=== PATIENT | female | born 1950 | race Caucasian/White ===

== ENCOUNTER → 2016-07-11 | Outpatient (CLI) | payer MEDICAID ==
[~2016-07-11] MED LIST: ATIVAN0.5 MG PO; BIAXIN500 MG PO; CLARITIN10 MG PO; LISINOPRIL AND1 TAB PO; LISINOPRIL/HCTZ1 TA2 PO; MIRAPEX0.5 MG PO; OMEPRAZOLE MAGN20 MG PO; OMEPRAZOLE20 MG PO; PRAVACHOL40 MG PO; PRAVASTATIN SOD80 MG PO; PREDNICOT20 MG PO; PRILOSEC40 MG PO; PROZAC20 MG PO; TESSALON PERLE200 MG PO; TRAMADOL50 MG PO; ULTRAM50 MG PO; VOLTAREN75 MG PO; WELLBUTRIN XL150 MG PO; ZITHROMAX Z PA250 MG PO; ZOFRAN4 MG PO
== END | disposition home or self-care (01) ==
LOC: RAD 12:08
DX: M51.36 Other intervertebral disc degeneration, lumbar region (principal); M41.86 Other forms of scoliosis, lumbar region; M48.06 Spinal stenosis, lumbar region; M25.552 Pain in left hip; M25.551 Pain in right hip

== ENCOUNTER → 2016-08-21 | Outpatient (CLI) | payer MEDICAID ==
--- NOTE | ~2016-08-21 | PF ---
[place], [place] PULMONARY FUNCTION TEST [facility] [id number] UNIT #: [id number] ROOM: DOCTOR: RICARDO DALTON MD,ERIKA BIRTHDATE: [birth year] DOS: 08/21/2016 The test was ordered by Liz Weldon, the nurse practitioner. HISTORY: The patient noted as 66-year-old female, height of 71 inches, weight of 297 pounds. BMI was noted at 41.4. The testing was done for assessment of symptoms of shortness breath and wheezing as well as a nonproductive cough. The patient was noted with known tobacco use in the past. SPIROMETRY: The FVC was recorded 3.87 liters, 95% predicted value that was normal. The FEV1 was noted at 3 liters as 96% predicted value normal as well. Ratio of FEV1/FVC was noted as normal. No changes occurred postbronchodilator test. Flow volume loop for the patient was noted as possibility of mild obstructive airway pattern. The patient's lung volumes, thoracic gas volume recorded as 92%, residual volume 121%, total lung capacity 110%. The lung volumes were noted normal. The patient's lung diffusion noted normal at 87%. The patient's airway resistance and passive conductance were noted significantly abnormal. Partial improvement occurred postbronchodilator test. FINAL IMPRESSION: The test was consistent with possibility of reversible obstructive lung disease for this patient such as bronchial asthma. Clinical correlation would be advised. ERIKA SILVA MD CM:PFREPORT:PULMONARY FUNCTION TEST [id number] ERIKA DALTON MD
== END ==
LOC: CP 10:22
DX: R06.02 Shortness of breath (principal); R06.2 Wheezing

== ENCOUNTER → 2017-01-05 | Day surgery (SDC) | payer MEDICAID ==
[~2017-01-05] VITALS: Ht 180.3 cm; Wt 132.0 kg
[~2017-01-05] MED LIST changes: +TYLENOL325 M2 PO; +VITAMIN D-32000 UNIT PO
--- NOTE | ~2017-01-05 | O ---
[place], [place] OPERATIVE NOTE NAME: GAURI HOLBROOK [facility] #: [id number] UNIT #: [id number] ROOM: DOCTOR: ALLEN JARA MDERIEESSENCE BIRTHDATE: [birth year] DOS: INDICATIONS: A 66-year-old patient who has presented with chief complaint of epigastric abdominal pain, dyspepsia, despite omeprazole 40 mg daily. ALLERGIES: PENICILLIN. FAMILY HISTORY: Noncontributory. PAST SURGICAL HISTORY: Tonsillectomy, adenoidectomy, hysterectomy. PAST MEDICAL HISTORY: Hypercholesterolemia, hypertension and restless leg and obesity, anxiety. SOCIAL HISTORY: Nonsmoker, nonalcohol consumer. PROCEDURE: Todays' procedure part of investigation is panendoscopy plus biopsy. PREMEDICATION: Versed and Diprivan. SCOPE: Olympus forward*viewing gastroscope Q10 video. REPORT: After putting the patient in the left lateral position and after application of lubricant to the scope, the scope was introduced. Thereafter, under direct visualization, I advanced through the length of the esophagus without difficulty. Entering into gastric pouch, she has a moderate size hiatal hernia sac. Scope was maneuvered through this ____ twisted hiatal hernia into the gastric pouch along the greater curvature. The scope was advanced towards the pyloric ring. Duodenal bulb, second and third part within normal limits. Scope was gradually withdrawn along the lesser curvature. Antral biopsy obtained. GI reflection of the scope confirmed hiatal hernia. The patient extubated, tolerated procedure well. IMPRESSION: Hiatal hernia, moderate size, gastritis, status post biopsy. PLAN AND DISCUSSION: We are going to give 40 mg, Protonix daily continues, Gaviscon Extra Strength to be taken 1 tablet at bedtime, 1 tablet a.m. and p.r.n. when she requires, otherwise the culprit in her epigastric distress and dyspepsia is secondary to her hiatal hernia. Antireflux measures, smaller meals, avoiding late eating, all would help the situation. The patient was advised to abstain from certain foods including chocolate, alcohols, carbonated sodas, excessive tomato sauce and mustard and mint and follow up routinely with you in office and with us in GI clinic. I thank you very much indeed again Ms. Liz Weldon for your kind referral. [place], [place] OPERATIVE NOTE NAME: GAURI HOLBROOK UNIT #: [id number] ROOM: DOCTOR: MAREK BRONSON,LAMONT BIRTHDATE: [birth year] LAMONT JARA MD CM:OPRECORD:OPERATIVE NOTE 02 LIZ JARA MD 01/05/172101 interface
[2017-01-05 13:41] VITALS: BP 165/71
[2017-01-05 14:28] VITALS: BP 122/73
[2017-01-05 14:45] VITALS: BP 126/72
[2017-01-05 14:54] VITALS: BP 160/74
== END | disposition home or self-care (01) ==
LOC: SDC 01-03 10:15
DX: K29.50 Unspecified chronic gastritis without bleeding (principal); K44.9 Diaphragmatic hernia without obstruction or gangrene; F41.9 Anxiety disorder, unspecified; F32.9 Major depressive disorder, single episode, unspecified; K21.9 Gastro-esophageal reflux disease without esophagitis; M19.90 Unspecified osteoarthritis, unspecified site; I10 Essential (primary) hypertension; E78.00 Pure hypercholesterolemia, unspecified; J45.909 Unspecified asthma, uncomplicated; Z90.710 Acquired absence of both cervix and uterus; Z98.890 Other specified postprocedural states; Z83.3 Family history of diabetes mellitus; Z82.49 Family history of ischemic heart disease and other diseases of the circulatory system; Z88.0 Allergy status to penicillin

== ENCOUNTER → 2018-01-15 | Outpatient (CLI) | payer MEDICAID | END | disposition home or self-care (01) | LOC: MAMMO 13:46 | DX: Z12.31 Encounter for screening mammogram for malignant neoplasm of breast (principal); K44.9 Diaphragmatic hernia without obstruction or gangrene; M51.34 Other intervertebral disc degeneration, thoracic region; M41.83 Other forms of scoliosis, cervicothoracic region; M50.30 Other cervical disc degeneration, unspecified cervical region ==

== ENCOUNTER → 2018-02-13 | Day surgery (SDC) | payer MEDICAID ==
[~2018-02-13] VITALS: Ht 180.3 cm; Wt 135.2 kg
--- NOTE | ~2018-02-13 | O ---
[place], [place] OPERATIVE NOTE [id number] UNIT #: [id number] ROOM: DOCTOR: LAMONT JARA MD BIRTHDATE: [birth year] DOS: 02/13/2018 HISTORY OF PRESENT ILLNESS: This is a 68-year-old patient who was presented with chief complaint of colonic screening concern. ALLERGIES: PENICILLIN. FAMILY HISTORY: Noncontributory. PAST SURGICAL HISTORY: Hysterectomy, tonsillectomy, ovarian cystectomy, and bilateral knee prosthesis. PAST MEDICAL HISTORY: Obesity, hypertension, hypercholesterolemia, and depression. SOCIAL HISTORY: Nonsmoker, nonalcohol consumer. PROCEDURE: Today's procedure part of investigation is colonoscopy plus snare polypectomy. PREMEDICATION: Propofol. SCOPE: Olympus forward-viewing colonoscope 10L video. REPORT: After putting the patient in left lateral position and application of lubricant to the scope, the scope was introduced. Thereafter, under direct visualization, advanced through the length of colon without difficulty. Diverticulosis of sigmoid colon was appreciated. Sessile polypoid lesion in mid transverse colon with snare was polypectomized. Samples removed. Base of the cecum explored, appendiceal orifice identified, ileocecal valve was defined and photographed. Air was suctioned out. The patient was extubated, tolerated the procedure well. IMPRESSION: Colonic polyps, status post snare polypectomy transverse colon, diverticulosis sigmoid colon. PLAN AND DISCUSSION: High fiber diet, avoiding fatty food and excessive carbohydrates. Follow up as outpatient routinely with you in office, p.r.n. visit with us in GI Clinic. [place], [place] OPERATIVE NOTE NAME: GAURI HOLBROOK UNIT #: [id number] ROOM: DOCTOR: LAMONT JARA MD BIRTHDATE: [birth year] LAMONT JARA MD CM:OPRECORD:OPERATIVE NOTE 1046 1221 JULIAN JARA MD 02/13/18 1221 interface
[2018-02-13 09:20] VITALS: BP 135/87
[2018-02-13 10:40] VITALS: BP 126/69
[2018-02-13 10:55] VITALS: BP 120/61
[2018-02-13 11:10] VITALS: BP 120/65
== END | disposition home or self-care (01) ==
LOC: SDC 02-08 10:15
DX: Z12.11 Encounter for screening for malignant neoplasm of colon (principal); D12.3 Benign neoplasm of transverse colon; K57.30 Diverticulosis of large intestine without perforation or abscess without bleeding; I10 Essential (primary) hypertension; E78.00 Pure hypercholesterolemia, unspecified; K21.9 Gastro-esophageal reflux disease without esophagitis; J45.909 Unspecified asthma, uncomplicated; M19.90 Unspecified osteoarthritis, unspecified site; E66.09 Other obesity due to excess calories; F32.9 Major depressive disorder, single episode, unspecified; F41.9 Anxiety disorder, unspecified; Z87.19 Personal history of other diseases of the digestive system; Z90.710 Acquired absence of both cervix and uterus; Z96.653 Presence of artificial knee joint, bilateral; Z98.890 Other specified postprocedural states; Z79.899 Other long term (current) drug therapy; Z88.0 Allergy status to penicillin; Z68.41 Body mass index [BMI] 40.0-44.9, adult; Z82.49 Family history of ischemic heart disease and other diseases of the circulatory system; Z83.3 Family history of diabetes mellitus; Z86.73 Personal history of transient ischemic attack (TIA), and cerebral infarction without residual deficits

== ENCOUNTER → 2018-06-20 | Outpatient (CLI) | payer MEDICAID ==
--- NOTE | ~2018-06-20 | EKG ---
[place], [place] ELECTROCARDIOGRAM REPORT NAME: GAURI HOLBROOK UNIT #: [id number] ROOM: DOCTOR: EPIPHANY DRAFT REPORT BIRTHDATE: [birth year] [facility] Test Date: 2018-06-20 Test Time: 14:02:56 Pat Name: GAURI HOLBROOK Department: Room: Gender: F Explosive Expert: Aggie Weber : 1950 Requested By: JULIAN LARRY Order Number: [id number] Reading MD: Meng Rodriguez MD Measurements Intervals [place] Rate: 69 P: 8 SD: 204 QRS: -17 QRSD: 98 T: 15 QT: 419 QTc: 449 Interpretive Statements Sinus rhythm Left ventricular hypertrophy Anterior Q waves, possibly due to LVH Electronically Signed On 06-21-2018 3:18:29 PDT by Meng Rodriguez MD CM:EKGRPT:ELECTROCARDIOGRAM REPORT 1402 [id number] JULIAN LARRY EPIPHANY DRAFT REPORT JULIAN LARRY
== END | disposition home or self-care (01) ==
LOC: CARD 12:24
DX: F32.9 Major depressive disorder, single episode, unspecified (principal); E03.9 Hypothyroidism, unspecified; R06.02 Shortness of breath; I10 Essential (primary) hypertension; Z86.39 Personal history of other endocrine, nutritional and metabolic disease

== ENCOUNTER → 2019-02-25 | Outpatient (CLI) | payer MEDICAID | END | disposition home or self-care (01) | LOC: CARD 08:41 | DX: K44.9 Diaphragmatic hernia without obstruction or gangrene (principal); E03.9 Hypothyroidism, unspecified; I10 Essential (primary) hypertension; F32.9 Major depressive disorder, single episode, unspecified; F43.21 Adjustment disorder with depressed mood; R42 Dizziness and giddiness ==

== ENCOUNTER → 2019-04-22 | Outpatient (CLI) | payer MEDICAID ==
[~2019-04-22] MED LIST changes: +ASPIRIN81 M1 PO; +HYDROCHLOROTH12.5 M2 PO
--- NOTE | 2019-04-22 07:00 | NUR ---
INFORMED CONSENT OBTAINED FOR LEXISCAN NUCLEAR STRESS TEST WITH DR. WALLACE. RESTING EKG NSR WITH A RESTING HR OF 74 WITH BP OF 148/100. LUNGS CLEAR WITH SPO2 OF 96% ON ROOM AIR. PT COMPLETED A 1:00 LEXISCAN PROTOCOL RECEIVING LEXISCAN 0.4 MG IV OVER 10 SECONDS. HAD NO EKG CHANGES. DID C/O CHEST DISCOMFORT THAT WAS RELIEVED IN RECOVERY. HAD A PEAK HR OF 96 WITH BP OF 136/78. LAST RECOVERY HR OF 92 WITH BP OF 132/76. AWAITING SCANNING IN STABLE CONDITION.
== END | disposition home or self-care (01) ==
LOC: CARD 00:43
DX: R07.9 Chest pain, unspecified (principal)

== ENCOUNTER → 2019-11-04 | Outpatient (CLI) | payer MEDICAID | END | disposition home or self-care (01) | LOC: COVID19 00:52 | DX: R05 Cough (principal); R06.02 Shortness of breath; E66.01 Morbid (severe) obesity due to excess calories; F31.4 Bipolar disorder, current episode depressed, severe, without psychotic features; Z20.818 Contact with and (suspected) exposure to other bacterial communicable diseases; Z68.43 Body mass index [BMI] 50.0-59.9, adult ==

== ENCOUNTER → 2019-12-05 | Outpatient (CLI) | payer MEDICAID ==
[~2019-12-05] MED LIST changes: +CARAFATE1 G1 PO; +VRAYLAR1 EACH PO
== END | disposition home or self-care (01) ==
LOC: COVID19 00:46
PROVIDERS: ATTEND Surgery
DX: Z01.812 Encounter for preprocedural laboratory examination (principal); Z20.828 Contact with and (suspected) exposure to other viral communicable diseases

== ENCOUNTER → 2019-12-11 | Day surgery (SDC) | payer MEDICAID ==
[~2019-12-11] VITALS: Ht 180.3 cm; Wt 147.0 kg
[2019-12-11 11:02] VITALS: BP 139/72
[2019-12-11 11:58] VITALS: BP 101/55
[2019-12-11 12:13] VITALS: BP 107/53
[2019-12-11 12:28] VITALS: BP 130/56
== END | disposition home or self-care (01) ==
LOC: SDC 12-08 13:15
PROVIDERS: ATTEND Surgery
DX: K29.50 Unspecified chronic gastritis without bleeding (principal); K44.9 Diaphragmatic hernia without obstruction or gangrene; I10 Essential (primary) hypertension; J45.909 Unspecified asthma, uncomplicated; F41.9 Anxiety disorder, unspecified; F32.9 Major depressive disorder, single episode, unspecified; E78.5 Hyperlipidemia, unspecified; E78.00 Pure hypercholesterolemia, unspecified; K21.9 Gastro-esophageal reflux disease without esophagitis; Z96.653 Presence of artificial knee joint, bilateral; Z98.890 Other specified postprocedural states; Z79.899 Other long term (current) drug therapy; Z88.0 Allergy status to penicillin; Z88.8 Allergy status to other drugs, medicaments and biological substances; Z83.3 Family history of diabetes mellitus; Z82.3 Family history of stroke; Z82.49 Family history of ischemic heart disease and other diseases of the circulatory system

== ENCOUNTER → 2020-06-08 | Outpatient (CLI) | payer MEDICARE, MEDICAID | END | disposition home or self-care (01) | LOC: RAD 12:16 | PROVIDERS: ATTEND Nurse Practitioner Family | DX: M25.521 Pain in right elbow (principal); M25.511 Pain in right shoulder; M25.531 Pain in right wrist; Z91.81 History of falling ==

== ENCOUNTER 2020-08-31 14:57 | Emergency (ER) | payer OTHER ==
[~2020-08-31] VITALS: Wt 146.5 kg
[2020-08-31 15:03] VITALS: BP 145/76
[2020-08-31 15:51] LABS: BILIRUBIN Negative (Negative); BLOOD Trace-Lysed (Negative); CLARITY Cloudy (Clear); COLOR Yellow (Yellow); GLUCOSE Negative (Negative); KETONE Negative (Negative); LEUKO ESTERASE 3+ (Negative); NITRITE Negative (Negative); PH 5.5 (4.5-8.0); SPECIFIC GRAVITY 1.015 (1.001-1.030)
[2020-08-31 16:01] LABS: EPITHELIAL CELLS 16-20; HYALINE CAST 0-2; MUCOUS 1+; WBC 51-100 wbc/hpf (0-5)
[2020-08-31] MEDS ORDERED: SEPTDS PO (16:24)
== END 2020-08-31 16:31 | disposition home or self-care (01) ==
LOC: ED 14:57
PROVIDERS: Physician Assistant
DX: N39.0 Urinary tract infection, site not specified (principal); Z88.0 Allergy status to penicillin; Z91.048 Other nonmedicinal substance allergy status; Z79.899 Other long term (current) drug therapy; Z79.82 Long term (current) use of aspirin; Z90.711 Acquired absence of uterus with remaining cervical stump; Z87.42 Personal history of other diseases of the female genital tract

== ENCOUNTER 2020-10-07 14:44 | Emergency (ER) | payer OTHER ==
[~2020-10-07] VITALS: Ht 180.3 cm; Wt 152.4 kg
[~2020-10-07 14:44] MED LIST changes: +SEPTDS PO
[2020-10-07 17:50] VITALS: BP 139/52
== END 2020-10-07 19:56 | disposition home or self-care (01) ==
LOC: ED 14:44
DX: S00.83XA Contusion of other part of head, initial encounter (principal); M25.511 Pain in right shoulder; M25.561 Pain in right knee; M25.552 Pain in left hip; Z90.710 Acquired absence of both cervix and uterus; Z79.899 Other long term (current) drug therapy; Z79.82 Long term (current) use of aspirin; Z88.0 Allergy status to penicillin; W01.198A Fall on same level from slipping, tripping and stumbling with subsequent striking against other object, initial encounter; Y93.01 Activity, walking, marching and hiking; Y92.89 Other specified places as the place of occurrence of the external cause; Y99.9 Unspecified external cause status

== ENCOUNTER → 2020-12-14 | Outpatient (CLI) | payer OTHER | END | disposition home or self-care (01) | LOC: US 13:00 | PROVIDERS: ATTEND Nurse Practitioner Family | DX: L03.116 Cellulitis of left lower limb (principal); R60.0 Localized edema; E66.9 Obesity, unspecified ==

== ENCOUNTER → 2021-02-28 | Outpatient (CLI) | payer OTHER | END | disposition home or self-care (01) | LOC: MAMMO 02-21 13:00 → RAD 02-21 13:30 → MAMMO 09:21 | PROVIDERS: ATTEND Nurse Practitioner Family | DX: Z12.31 Encounter for screening mammogram for malignant neoplasm of breast (principal); Z78.0 Asymptomatic menopausal state; Z13.820 Encounter for screening for osteoporosis ==

== ENCOUNTER 2022-05-08 16:54 | Emergency (ER) | payer OTHER ==
[~2022-05-08] VITALS: Ht 175.2 cm; Wt 136.1 kg
[2022-05-08 17:03] VITALS: BP 156/96
[2022-05-08 18:00] LABS: BASO # 0.1 10*3/uL (0.0-0.1); BASO % 0.9 % (0.0-1.0); EOS # 0.2 10*3/uL (0.0-0.4); EOS % 2.8 % (1.0-4.0); HEMATOCRIT 45.2 % (37.0-47.0); LYMPH # 1.6 10*3/uL (1.3-4.4); LYMPH % 25.5 % (27.0-41.0); MEAN CORPUSCULAR HGB 27.8 pg (27.0-31.0); MEAN CORPUSCULAR HGB CONC 31.2 g/dl (33.0-37.0); MEAN PLATELET VOLUME 11.1 fl (9.6-12.3); MONO # 0.8 10*3/uL (0.1-1.0); MONO % 11.7 % (3.0-9.0); NEUT # 3.8 10*3/uL (2.3-7.9); NEUT % 58.8 % (47.0-73.0); PLATELET COUNT AUTOMATED 215 10*3/uL (130-400); RED BLOOD COUNT 5.08 10*6/uL (4.10-5.10); RED CELL DISTRI WIDTH 13.9 % (0-14.5); WHITE BLOOD COUNT 6.4 10*3/uL (4.8-10.8)
[2022-05-08 18:04] LABS: BILIRUBIN Negative (Negative); BLOOD Trace-Lysed (Negative); CLARITY Clear (Clear); COLOR Yellow (Yellow); GLUCOSE Negative (Negative); KETONE Negative (Negative); LEUKO ESTERASE 1+ (Negative); NITRITE Positive (Negative); PH 5.5 (4.5-8.0); SPECIFIC GRAVITY 1.025 (1.001-1.030)
[2022-05-08 18:16] LABS: BACTERIA 3+; RBC 0-2 rbc/hpf (0-2)
[2022-05-08 18:17] LABS: ALKALINE PHOSPHATASE 140 U/L (46-116); BUN 15 mg/dl (9-23); CHLORIDE 105 mmol/L (98-107); POTASSIUM 3.9 mmol/L (3.4-5.1); SGPT/ALT 20 U/L (10-49); TOTAL PROTEIN 6.8 gm/dL (6.0-8.0)
[2022-05-08] MEDS ORDERED: SEPTDS PO (18:26)
== END 2022-05-08 18:31 | disposition home or self-care (01) ==
LOC: ED 16:54
PROVIDERS: Nurse Practitioner Family
DX: L03.115 Cellulitis of right lower limb (principal); F41.9 Anxiety disorder, unspecified; F32.A Depression, unspecified; K21.9 Gastro-esophageal reflux disease without esophagitis; I10 Essential (primary) hypertension; E78.00 Pure hypercholesterolemia, unspecified; J45.909 Unspecified asthma, uncomplicated; M19.90 Unspecified osteoarthritis, unspecified site; Z88.0 Allergy status to penicillin; Z88.8 Allergy status to other drugs, medicaments and biological substances; Z90.710 Acquired absence of both cervix and uterus; Z96.653 Presence of artificial knee joint, bilateral; Z98.890 Other specified postprocedural states; Z79.899 Other long term (current) drug therapy

== ENCOUNTER 2022-05-27 08:57 | Emergency (ER) | payer OTHER ==
[~2022-05-27] VITALS: Ht 177.8 cm; Wt 136.1 kg
[2022-05-27 09:14] VITALS: BP 152/100
[2022-05-27 09:40] LABS: BASO % 0.4 % (0.0-1.0); EOS # 0.1 10*3/uL (0.0-0.4); LYMPH # 1.5 10*3/uL (1.3-4.4); LYMPH % 21.6 % (27.0-41.0); MEAN CELL VOLUME 87.6 fl (81.0-99.0); MEAN CORPUSCULAR HGB 28.1 pg (27.0-31.0); MEAN PLATELET VOLUME 10.5 fl (9.6-12.3); MONO # 0.6 10*3/uL (0.1-1.0); MONO % 9.1 % (3.0-9.0); NEUT # 4.6 10*3/uL (2.3-7.9); NEUT % 66.8 % (47.0-73.0); PLATELET COUNT AUTOMATED 208 10*3/uL (130-400); RED BLOOD COUNT 5.02 10*6/uL (4.10-5.10); RED CELL DISTRI WIDTH 14.2 % (0-14.5); WHITE BLOOD COUNT 6.9 10*3/uL (4.8-10.8)
[2022-05-27 09:54] LABS: BILIRUBIN Negative (Negative); BLOOD Negative (Negative); CLARITY Clear (Clear); COLOR Yellow (Yellow); GLUCOSE Negative (Negative); KETONE Negative (Negative); LEUKO ESTERASE Negative (Negative); NITRITE Negative (Negative)
[2022-05-27 09:55] LABS: ALKALINE PHOSPHATASE 147 U/L (46-116); BUN 12 mg/dl (9-23); CHLORIDE 107 mmol/L (98-107); POTASSIUM 4.2 mmol/L (3.4-5.1); SGPT/ALT 12 U/L (10-49); TOTAL PROTEIN 6.6 gm/dL (6.0-8.0)
[2022-05-27 10:03] LABS: BACTERIA TRACE; RBC 0-2 rbc/hpf (0-2)
[2022-05-27] MEDS ORDERED: CYCLOBENZAPRINE10 MG PO (10:59)
[2022-05-27] MEDS ORDERED: HYDROCODONE-AC1 EAC1 PO (10:59)
== END 2022-05-27 11:04 | disposition home or self-care (01) ==
LOC: ED 08:57
PROVIDERS: Internal Medicine
DX: M51.36 Other intervertebral disc degeneration, lumbar region (principal); M54.50 Low back pain, unspecified; F41.9 Anxiety disorder, unspecified; F32.A Depression, unspecified; K21.9 Gastro-esophageal reflux disease without esophagitis; M19.90 Unspecified osteoarthritis, unspecified site; I10 Essential (primary) hypertension; E78.00 Pure hypercholesterolemia, unspecified; J45.909 Unspecified asthma, uncomplicated; Z88.0 Allergy status to penicillin; Z88.8 Allergy status to other drugs, medicaments and biological substances; Z90.710 Acquired absence of both cervix and uterus; Z98.890 Other specified postprocedural states

== ENCOUNTER 2023-03-22 10:43 | Emergency (ER) | payer MEDICARE ==
[~2023-03-22] VITALS: Wt 158.8 kg
[~2023-03-22 10:43] MED LIST changes: +CYCLOBENZAPRINE10 MG PO; +HYDROCODONE-AC1 EAC1 PO
[2023-03-22 12:01] LABS: BASO # 0.1 10*3/uL (0.0-0.1); BASO % 0.8 % (0.0-1.0); EOS # 0.2 10*3/uL (0.0-0.4); EOS % 3.1 % (1.0-4.0); HEMATOCRIT 45.8 % (37.0-47.0); LYMPH # 1.8 10*3/uL (1.3-4.4); LYMPH % 22.9 % (27.0-41.0); MEAN CELL VOLUME 86.4 fl (81.0-99.0); MEAN CORPUSCULAR HGB 27.4 pg (27.0-31.0); MEAN CORPUSCULAR HGB CONC 31.7 g/dl (33.0-37.0); MEAN PLATELET VOLUME 11.1 fl (9.6-12.3); MONO # 0.6 10*3/uL (0.1-1.0); MONO % 7.8 % (3.0-9.0); PLATELET COUNT AUTOMATED 226 10*3/uL (130-400); RED CELL DISTRI WIDTH 13.9 % (0-14.5); WHITE BLOOD COUNT 7.7 10*3/uL (4.8-10.8)
[2023-03-22 12:29] LABS: ALKALINE PHOSPHATASE 126 U/L (46-116); BUN 12 mg/dl (9-23); CHLORIDE 104 mmol/L (98-107); POTASSIUM 4.5 mmol/L (3.4-5.1); SGPT/ALT 22 U/L (5-49); TOTAL PROTEIN 6.9 gm/dL (6.0-8.0)
[2023-03-22 12:36] VITALS: BP 161/85
== END 2023-03-22 14:50 | disposition home or self-care (01) ==
LOC: ED 10:43
PROVIDERS: Nurse Practitioner
DX: R07.89 Other chest pain (principal); R51.9 Headache, unspecified; I10 Essential (primary) hypertension; F41.9 Anxiety disorder, unspecified; F32.A Depression, unspecified; K21.9 Gastro-esophageal reflux disease without esophagitis; M19.90 Unspecified osteoarthritis, unspecified site; E78.00 Pure hypercholesterolemia, unspecified; J45.909 Unspecified asthma, uncomplicated; Z88.0 Allergy status to penicillin; Z88.8 Allergy status to other drugs, medicaments and biological substances; Z90.710 Acquired absence of both cervix and uterus; Z98.890 Other specified postprocedural states